=== PATIENT | male | born 1975 | race Caucasian/White ===

== ENCOUNTER 2022-10-14 16:37 | Emergency (ER) | payer OTHER, SELFPAY ==
[2022-10-14 16:49] VITALS: BP 127/76; PULSE 60; RESP 18; TEMP 36.2; O2SAT 97; BMI 27.8
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
[2022-10-14 20:10] VITALS: BP 133/71; PULSE 65; RESP 16; TEMP 36.7
== END 2022-10-14 20:14 | disposition home or self-care (01) ==
PROVIDERS: Emergency Provider Emergency Medicine Emergency Medical Services
DX: S63.502A Unspecified sprain of left wrist, initial encounter (principal); V43.52XA Car driver injured in collision with other type car in traffic accident, initial encounter
CPT/HCPCS: 29125; 73110; 99283; 99284